=== PATIENT | male | born 1945 ===

== ENCOUNTER 2024-06-03 08:10 | Inpatient (IN) ==
[2024-06-03] MEDS: IPRATROPIUM/ALBUTEROL 3 ML AMPUL.NEB NEB ONE ×2 (09:05→09:45)
[2024-06-03 09:12] LABS: Basophils # (Auto) 0.01 K/mcL (0.00-0.30); Basophils % (Auto) 0.1 % (0.0-2.0); Eosinophils # (Auto) 0.01 K/mcL (0.00-0.70); Eosinophils % (Auto) 0.1 % (0.0-7.0); Hematocrit 40.2 % (40.1-51.0); Lymphocytes # (Auto) 1.52 K/mcL (1.50-4.80); Lymphocytes % (Auto) 16.9 % (15.5-49.0); Mean Cell Volume 91.2 fL (80.0-100.0); Mean Corpuscular HGB Conc 34.8 g/dL (31.0-36.0); Mean Platelet Volume 10.9 fL (8.8-12.5); Monocytes # (Auto) 0.75 K/mcL (0.10-0.90); Monocytes % (Auto) 8.4 % (1.0-12.0); Neutrophils % (Auto) 73.7 % (38.0-78.0); Platelet Count 84 K/mcL (140-440); RBC 4.41 M/mcL (4.63-6.08)
[2024-06-03 09:44] LABS: ALT/SGPT 47 U/L (<40); AST/SGOT 50 U/L (<40); Albumin 3.7 gm/dL (3.2-5.2); Albumin/Globulin Ratio 1.2 (1.0-2.3); Alkaline Phosphatase 93 U/L (39-117); Bilirubin,Total 0.8 mg/dL (0.1-1.0); Blood Urea Nitrogen 14 mg/dL (8-23); Calcium 8.7 mg/dL (8.6-10.4); Carbon Dioxide 23 mmol/L (22-30); Chloride 102 mmol/L (96-108); Globulin 3.1 gm/dL (2.2-3.7); Glomerular Filtration Rate 71; Glucose 153 mg/dL (70-105); Potassium 3.7 mmol/L (3.3-5.1); Sodium 140 mmol/L (133-145)
[2024-06-03] MEDS: cefTRIAXone 1 GM VIAL IV SCH (09:48)
[2024-06-03] MEDS: AZITHROMYCIN 500 MG in 0.9 % SODIUM CHLORIDE 250 ML IV ONE (10:01)
[2024-06-03] MEDS: ALBUTEROL SULFATE 2.5 MG/3 ML NEBULIZER NEB ONE (11:27)
[2024-06-03 12:35] LABS: Band Neutrophils % 2 % (0-10); Lymphocytes % 21 % (15-49); Monocytes % (Manual) 6 % (1-12); Platelet Estimate DECREASED (Normal); RBC Morphology NORMAL (Normal); Segmented Neutrophils % 71 % (38-78)
[2024-06-03] MEDS ORDERED: MAGNESIUM SULFATE 2 GM/50 ML BAG IV PRN (13:23)
[2024-06-03] MEDS ORDERED: SENNOSIDES 1 TABLET PO PRN (13:23)
[2024-06-03] MEDS ORDERED: ONDANSETRON 4 MG/2 ML VIAL IV PRN (13:23)
[2024-06-03] MEDS ORDERED: POTASSIUM CHLORIDE 20 MEQ TABLET PO PRN ×2 (13:23)
[2024-06-03] MEDS ORDERED: POTASSIUM CHLORIDE 40 MEQ in DEXTROSE 5% IN WATER 500 ML IV PRN (13:23)
[2024-06-03] MEDS ORDERED: POLYETHYLENE GLYCOL 3350 17 GM PACKET PO PRN (13:23)
[2024-06-03] MEDS ORDERED: ACETAMINOPHEN 325 MG TABLET PO PRN (13:23)
[2024-06-03] MEDS ORDERED: IPRATROPIUM/ALBUTEROL 3 ML AMPUL.NEB NEB PRN (13:23)
[2024-06-03] MEDS ORDERED: METOCLOPRAMIDE 10 MG/2 ML VIAL IV PRN (13:23)
[2024-06-03] MEDS: cefTRIAXone 1 GM VIAL IV ONE (13:41)
[2024-06-03] MEDS: 0.9 % SODIUM CHLORIDE 1,000 ML IV ONE (13:42)
[2024-06-03] MEDS: 0.9 % SODIUM CHLORIDE 10 ML SYRINGE IV SCH (13:42)
[2024-06-03] MEDS: GABAPENTIN 100 MG CAPSULE PO SCH (21:38)
[2024-06-03] MEDS: DOCUSATE SODIUM 100 MG CAPSULE PO SCH (21:39)
[2024-06-03] MEDS: ENOXAPARIN 40 MG/0.4 ML SYRINGE SQ SCH (21:40)
[2024-06-04 06:12] LABS: Basophils # (Auto) 0.02 K/mcL (0.00-0.30); Basophils % (Auto) 0.3 % (0.0-2.0); Eosinophils # (Auto) 0.03 K/mcL (0.00-0.70); Eosinophils % (Auto) 0.4 % (0.0-7.0); Hematocrit 36.5 % (40.1-51.0); Hemoglobin 12.3 g/dL (13.7-17.5); Lymphocytes % (Auto) 22.3 % (15.5-49.0); Mean Cell Volume 93.4 fL (80.0-100.0); Mean Corpuscular HGB Conc 33.7 g/dL (31.0-36.0); Mean Platelet Volume 11.3 fL (8.8-12.5); Monocytes # (Auto) 0.77 K/mcL (0.10-0.90); Monocytes % (Auto) 10.1 % (1.0-12.0); Neutrophils % (Auto) 66.2 % (38.0-78.0); Platelet Count 82 K/mcL (140-440); RBC 3.91 M/mcL (4.63-6.08); Red Cell Distribution Width 13.1 % (11.5-14.5); WBC 7.6 K/mcL (4.5-11.0)
[2024-06-04 06:44] LABS: ALT/SGPT 44 U/L (<40); AST/SGOT 47 U/L (<40); Albumin 3.3 gm/dL (3.2-5.2); Albumin/Globulin Ratio 1.2 (1.0-2.3); Alkaline Phosphatase 83 U/L (39-117); Bilirubin,Direct 0.3 mg/dL (<0.3); Bilirubin,Total 0.4 mg/dL (0.1-1.0); Blood Urea Nitrogen 13 mg/dL (8-23); Calcium 8.3 mg/dL (8.6-10.4); Carbon Dioxide 26 mmol/L (22-30); Chloride 106 mmol/L (96-108); Globulin 2.7 gm/dL (2.2-3.7); Glomerular Filtration Rate 80; Glucose 137 mg/dL (70-105); Lactate Dehydrogenase 311 U/L (135-225); Phosphorous 2.3 mg/dL (2.5-4.5); Potassium 4.1 mmol/L (3.3-5.1); Sodium 141 mmol/L (133-145); Triglycerides 82 mg/dL (<150); Uric Acid 4.8 mg/dL (2.5-8.0)
[2024-06-04] MEDS: LOSARTAN 25 MG TABLET PO SCH (08:41)
[2024-06-04] MEDS: ATORVASTATIN 20 MG TABLET PO SCH (08:41)
[2024-06-04] MEDS: guaiFENesin 600 MG TAB.SR.12H PO SCH (10:31)
[2024-06-04] MEDS: cefTRIAXone 2 GM in DEXTROSE 5% IN WATER 50 ML IV SCH (10:32)
[2024-06-04] MEDS: AZITHROMYCIN 500 MG in 0.9 % SODIUM CHLORIDE 250 ML IV SCH (10:32)
== END 2024-06-04 11:45 | disposition home or self-care (01) | DRG 193 ==
LOC: ED 08:10 → MEDSUR 13:19
PROVIDERS: ADMIT Internal Medicine; ATTEND Internal Medicine